=== PATIENT | male | born 1960 | race Caucasian/White ===

== ENCOUNTER → 2022-04-10 10:11 | Outpatient (CLI) | payer OTHER, SELFPAY ==
[2022-04-10 11:12] LABS: Hematocrit 44.8 % (41-53); Hemoglobin 14.6 g/dL (13.5-17.5); Mean Corpuscular HGB Conc 32.5 % (30-36); Mean Corpuscular Hemoglobin 27.4 PG (26-34); Mean Corpuscular Volume 84.2 fL (80-100); Platelet Count 292 X10^3/uL (150-400); Red Blood Cell Count 5.32 X10^6/uL (4.5-5.9); White Blood Cell Count 5.8 X10^3/uL (4.5-11.0)
[2022-04-10 11:24] LABS: Hemoglobin A1C% w Est Avg Glu 7.4 % (4.0-6.0)
[2022-04-10 11:46] LABS: Alanine Aminotransferase 38 IU/L (<50); Albumin 4.7 g/dL (3.5-5.0); Albumin Globulin Ratio 1.5 (1.0-2.8); Alkaline Phosphatase 62 U/L (38-126); Aspartate Aminotransferase 32 IU/L (17-59); BUN Creatinine Ratio 19.3 (6-22); Bilirubin Total 1.4 mg/dL (0.2-1.3); Blood Urea Nitrogen 16 mg/dL (9-20); Calcium 9.6 mg/dL (8.4-10.2); Carbon Dioxide 24 mmol/L (22-32); Chloride 102 mmol/L (98-107); Cholesterol 261 mg/dL (140-199); Estimated Glomerular Filt Rate > 60 mL/min (>60); Globulin 3.1 g/dL (1.7-4.1); Glucose 129 mg/dL (80-110); HDL Cholesterol 61 mg/dL (40-60); HEMOLYSIS < 15 (0-50); LDL Cholesterol Calculated 175 mg/dL (<100); Potassium 4.4 mmol/L (3.4-5.1); Sodium 139 mmol/L (137-145); Total Protein 7.8 g/dL (6.3-8.2); Triglycerides 126 mg/dL (35-150)
[2022-04-10 12:05] LABS: Creatinine Urine Random 47.2 mg/dL
[2022-04-10 12:12] LABS: Microalbumin Urine Random 0.9 mg/dL (0-1.6)
[2022-04-10 12:13] LABS: TSH w/ Reflex to FT4 2.54 uIU/mL (0.47-4.68)
[2022-04-10 12:14] LABS: Prostate Specific Antigen 0.557 ng/mL (0.10-4.00)
== END ==
PROVIDERS: PCP Internal Medicine; Referring Provider Internal Medicine; Visit Provider Internal Medicine
DX: E11.69 Type 2 diabetes mellitus with other specified complication (principal); E78.2 Mixed hyperlipidemia; E78.5 Hyperlipidemia, unspecified; I10 Essential (primary) hypertension; N13.8 Other obstructive and reflux uropathy; N40.1 Benign prostatic hyperplasia with lower urinary tract symptoms
CPT/HCPCS: 36415; 80053; 80061; 82043; 82570; 83036; 84153; 84443; 85027

== ENCOUNTER → 2022-10-06 09:06 | Outpatient (CLI) | payer OTHER, SELFPAY ==
[2022-10-06 12:10] LABS: Aspartate Aminotransferase 35 IU/L (17-59); BUN Creatinine Ratio 19.5 (6-22); Blood Urea Nitrogen 16 mg/dL (9-20); Calcium 9.6 mg/dL (8.4-10.2); Carbon Dioxide 32 mmol/L (22-32); Chloride 99 mmol/L (98-107); Cholesterol 238 mg/dL (140-199); Estimated Glomerular Filt Rate > 60 mL/min (>60); Glucose 148 mg/dL (80-110); HDL Cholesterol 56 mg/dL (40-60); HEMOLYSIS < 15 (0-50); LDL Cholesterol Calculated 147 mg/dL (<100); Potassium 5.3 mmol/L (3.4-5.1); Sodium 137 mmol/L (137-145); Triglycerides 176 mg/dL (35-150)
[2022-10-07 07:10] LABS: x Labcorp Estim. Avg Glu (eAG) 163 mg/dL (.); x Labcorp Hemoglobin A1c 7.3 % (4.8-5.6)
== END ==
PROVIDERS: PCP Internal Medicine; Referring Provider Internal Medicine; Visit Provider Internal Medicine
DX: E11.69 Type 2 diabetes mellitus with other specified complication (principal); E78.5 Hyperlipidemia, unspecified; E78.2 Mixed hyperlipidemia; I10 Essential (primary) hypertension
CPT/HCPCS: 36415; 80048; 80061; 83036; 84450

== ENCOUNTER → 2022-12-31 09:06 | Outpatient (CLI) | payer OTHER, SELFPAY ==
--- NOTE | 2022-12-31 09:11 | DI.RAD.S_ITS ---
PROCEDURE: XR LUMBAR SPINE 6V W BENDING INDICATIONS: sciatica with flex and ext. TECHNIQUE: 7 views of the lumbar spine acquired, including flexion and extension views. COMPARISON: None. FINDINGS: Bones: 5 nonrib-bearing vertebrae are present. Grade 1 anterolisthesis of L5 on S1 with bilateral pars interarticularis defects. Moderate to severe disc height loss at L5-S1 with degenerative endplate changes and vacuum disc phenomena. Facet arthropathy, worse at L4-L5 and L5-S1. No vertebral body compression fractures. No suspicious bony lesions. Soft tissues: Overlying bowel gas pattern is normal. No suspicious soft tissue calcifications. Atherosclerotic vascular calcifications. Flexion/extension: There is limited range of motion, with preserved alignment. IMPRESSION: Multilevel degenerative changes of the lumbar spine, worse at L5-S1 with bilateral pars interarticularis defects and grade 1 anterolisthesis. Dictated by: Catrachito Park M.D. on 12/31/2022 at 13:38 Approved by: Catrachito Park M.D. on 12/31/2022 at 13:40
--- NOTE | 2022-12-31 09:11 | DI.RAD.S_ITS ---
PROCEDURE: XR CERVICAL SPINE 4V OR 5V INDICATIONS: neck pain with flexion and ext. TECHNIQUE: 6 views of the cervical spine were acquired. COMPARISON: None. FINDINGS: Bones: No fractures or dislocations to the C6 level. Straightening of the normal cervical lordosis with focal kyphosis centered at C3-C4. Mild grade 1 anterolisthesis of C3 on C4. Minimal retrolisthesis of C4 on C5 and C5 on C6. There are multilevel degenerative changes of the cervical spine with facet and uncovertebral arthropathy, disc height loss with degenerative endplate changes and spurring. No suspicious bony lesions. There is limited range of motion between flexion and extension, with preserved bony alignment. Soft tissues: Prevertebral soft tissues are normal in thickness. IMPRESSION: Multilevel degenerative changes of the cervical spine with limited range of motion. Dictated by: Catrachito Park M.D. on 12/31/2022 at 13:36 Approved by: Catrachito Park M.D. on 12/31/2022 at 13:38
[2022-12-31 11:41] LABS: Aspartate Aminotransferase 31 IU/L (17-59); BUN Creatinine Ratio 20.3 (6-22); Blood Urea Nitrogen 16 mg/dL (9-20); Calcium 9.8 mg/dL (8.4-10.2); Carbon Dioxide 27 mmol/L (22-32); Chloride 103 mmol/L (98-107); Cholesterol 261 mg/dL (140-199); Estimated Glomerular Filt Rate > 60 mL/min (>60); Glucose 203 mg/dL (80-110); HDL Cholesterol 50 mg/dL (40-60); HEMOLYSIS < 15 (0-50); LDL Cholesterol Calculated 178 mg/dL (<100); Potassium 4.3 mmol/L (3.4-5.1); Sodium 138 mmol/L (137-145); Triglycerides 164 mg/dL (35-150)
[2022-12-31 12:09] LABS: Hemoglobin A1C% w Est Avg Glu 7.6 % (4.0-6.0)
== END ==
LOC: LAB 09:08 → RAD 09:09
PROVIDERS: PCP Internal Medicine; Referring Provider Internal Medicine; Visit Provider Internal Medicine
DX: M47.22 Other spondylosis with radiculopathy, cervical region (principal); M47.817 Spondylosis without myelopathy or radiculopathy, lumbosacral region; M47.816 Spondylosis without myelopathy or radiculopathy, lumbar region; M43.17 Spondylolisthesis, lumbosacral region; M54.50 Low back pain, unspecified; E11.69 Type 2 diabetes mellitus with other specified complication; E78.2 Mixed hyperlipidemia; E78.5 Hyperlipidemia, unspecified; G89.29 Other chronic pain
CPT/HCPCS: 36415; 72050; 72114; 80048; 80061; 83036; 84450

== ENCOUNTER → 2023-04-07 08:58 | Outpatient (CLI) | payer OTHER, SELFPAY ==
[2023-04-07 09:52] LABS: BUN Creatinine Ratio 23.3 (6-22); Blood Urea Nitrogen 17 mg/dL (9-20); Calcium 9.6 mg/dL (8.4-10.2); Carbon Dioxide 26 mmol/L (22-32); Chloride 104 mmol/L (98-107); Estimated Glomerular Filt Rate > 60 mL/min (>60); Glucose 173 mg/dL (80-110); HEMOLYSIS < 15 (0-50); Magnesium 2.2 mg/dL (1.6-2.3); Sodium 137 mmol/L (137-145)
[2023-04-07 09:54] LABS: Creatinine Urine Random 71.8 mg/dL
[2023-04-07 09:59] LABS: Microalbumi Creatinin Ratio Ur 47.3 ug/mg CR (<30); Microalbumin Urine Random 3.4 mg/dL (0-1.6)
[2023-04-07 20:02] LABS: Hemoglobin A1C% w Est Avg Glu 7.7 % (4.0-6.0)
== END ==
PROVIDERS: PCP Internal Medicine; Referring Provider Internal Medicine; Visit Provider Internal Medicine
DX: E78.2 Mixed hyperlipidemia (principal); I10 Essential (primary) hypertension; E11.69 Type 2 diabetes mellitus with other specified complication; E78.5 Hyperlipidemia, unspecified
CPT/HCPCS: 36415; 80048; 82043; 82570; 83036; 83735

== ENCOUNTER → 2023-07-07 16:53 | Outpatient (CLI) | payer OTHER, SELFPAY ==
[2023-07-07 17:29] LABS: Aspartate Aminotransferase 35 IU/L (17-59); BUN Creatinine Ratio 25.4 (6-22); Blood Urea Nitrogen 18 mg/dL (9-20); Calcium 9.6 mg/dL (8.4-10.2); Carbon Dioxide 28 mmol/L (22-32); Chloride 105 mmol/L (98-107); Cholesterol 262 mg/dL (140-199); Estimated Glomerular Filt Rate > 60 mL/min (>60); Glucose 125 mg/dL (80-110); HDL Cholesterol 52 mg/dL (40-60); HEMOLYSIS < 15 (0-50); LDL Cholesterol Calculated 154 mg/dL (<100); Sodium 138 mmol/L (137-145); Triglycerides 280 mg/dL (35-150)
[2023-07-07 17:41] LABS: Creatinine Urine Random 55.7 mg/dL
[2023-07-07 17:45] LABS: Microalbumi Creatinin Ratio Ur 35.9 ug/mg CR (<30)
[2023-07-07 18:00] LABS: Prostate Specific Antigen Scrn 0.504 ng/mL (0.1-4.0)
== END ==
PROVIDERS: PCP Internal Medicine; Referring Provider Internal Medicine; Visit Provider Internal Medicine
DX: E11.69 Type 2 diabetes mellitus with other specified complication (principal); E78.5 Hyperlipidemia, unspecified; E78.2 Mixed hyperlipidemia; N13.8 Other obstructive and reflux uropathy; Z12.5 Encounter for screening for malignant neoplasm of prostate; I10 Essential (primary) hypertension; N40.1 Benign prostatic hyperplasia with lower urinary tract symptoms
CPT/HCPCS: 36415; 80048; 80061; 82043; 82570; 84450; G0103

== ENCOUNTER → 2023-10-08 14:43 | Outpatient (CLI) | payer OTHER, SELFPAY ==
[2023-10-08 20:46] LABS: Hemoglobin A1C% w Est Avg Glu 7.4 % (4.0-6.0)
== END ==
PROVIDERS: PCP Internal Medicine; Referring Provider Internal Medicine; Visit Provider Internal Medicine
DX: E11.69 Type 2 diabetes mellitus with other specified complication (principal); E78.5 Hyperlipidemia, unspecified
CPT/HCPCS: 36415; 83036

== ENCOUNTER → 2024-05-03 15:58 | Outpatient (CLI) | payer OTHER, SELFPAY ==
[2024-05-03 16:42] LABS: Hemoglobin A1C% w Est Avg Glu 7.7 % (4.0-6.0)
[2024-05-03 16:54] LABS: Aspartate Aminotransferase 38 IU/L (17-59); BUN Creatinine Ratio 16.1 (6-22); Blood Urea Nitrogen 14 mg/dL (9-20); Calcium 9.6 mg/dL (8.4-10.2); Carbon Dioxide 28 mmol/L (22-32); Chloride 103 mmol/L (98-107); Cholesterol 208 mg/dL (140-199); Estimated Glomerular Filt Rate > 60 mL/min (>60); Glucose 120 mg/dL (80-110); HDL Cholesterol 51 mg/dL (40-60); HEMOLYSIS < 15 (0-50); LDL Cholesterol Calculated 128 mg/dL (<100); Potassium 4.1 mmol/L (3.4-5.1); Sodium 139 mmol/L (137-145); Triglycerides 144 mg/dL (35-150)
[2024-05-03 17:06] LABS: Creatinine Urine Random 47.42 mg/dL
[2024-05-03 17:11] LABS: Microalbumin Urine Random 2.3 mg/dL (0-1.6)
[2024-05-03 17:26] LABS: Prostate Specific Antigen 0.568 ng/mL (0.10-4.00)
== END ==
PROVIDERS: PCP Internal Medicine; Referring Provider Internal Medicine; Visit Provider Internal Medicine
DX: N40.1 Benign prostatic hyperplasia with lower urinary tract symptoms (principal); N13.8 Other obstructive and reflux uropathy; E11.69 Type 2 diabetes mellitus with other specified complication; E78.5 Hyperlipidemia, unspecified; E78.2 Mixed hyperlipidemia
CPT/HCPCS: 36415; 80048; 80061; 82043; 82570; 83036; 84153; 84450

== ENCOUNTER → 2024-08-17 14:14 | Outpatient (CLI) | payer OTHER, SELFPAY ==
--- NOTE | 2024-08-17 14:16 | DI.RAD.S_ITS ---
PROCEDURE: XR CHEST 2V INDICATIONS: cough TECHNIQUE: 2 views of the chest were acquired. COMPARISON: None. FINDINGS: Surgical changes and devices: None. Lungs and pleura: Lungs are clear. No pleural effusions or pneumothorax. Mediastinum: Mediastinal contours are normal. Heart size is normal. Bones and chest wall: No suspicious bony abnormalities. Soft tissues appear unremarkable. IMPRESSION: No acute cardiopulmonary abnormality is seen. Dictated by: Jose G Lopez M.D. on 08/17/2024 at 23:49 Approved by: Jose G Lopez M.D. on 08/17/2024 at 23:50
[2024-08-17 14:51] LABS: Add Manual Diff / Slide Review NO; Basophils Absolute Auto 100 /uL (0-100); Basophils Percent Auto 0.9 % (0-2); Eosinophils Absolute Auto 100 /uL (0-450); Eosinophils Percent Auto 1.4 % (2-4); Hematocrit 39.7 % (41-53); Hemoglobin 12.9 g/dL (13.5-17.5); Lymphocytes Absolute Auto 1400 /uL (1100-4500); Lymphocytes Percent Auto 15.3 % (25-40); Mean Corpuscular HGB Conc 32.6 % (30-36); Mean Corpuscular Hemoglobin 27.6 PG (26-34); Mean Corpuscular Volume 84.6 fL (80-100); Monocytes Absolute Auto 1100 /uL (0-900); Monocytes Percent Auto 11.9 % (3-14); Neutrophils Absolute Auto 6200 /uL (1500-7000); Neutrophils Percent Auto 70.5 % (50-75); Platelet Count 380 X10^3/uL (150-400); Red Blood Cell Count 4.69 X10^6/uL (4.5-5.9); Red Cell Distribution Width 13.8 % (11.6-14.8); White Blood Cell Count 8.9 X10^3/uL (4.5-11.0)
[2024-08-17 14:54] LABS: Hemoglobin A1C% w Est Avg Glu 7.3 % (4.0-6.0)
[2024-08-17 15:41] LABS: Alanine Aminotransferase 22 IU/L (<50); Albumin Globulin Ratio 1.3 (1.0-2.8); Alkaline Phosphatase 74 U/L (38-126); Aspartate Aminotransferase 22 IU/L (17-59); BUN Creatinine Ratio 20.7 (6-22); Bilirubin Total 0.5 mg/dL (0.2-1.3); Blood Urea Nitrogen 12 mg/dL (9-20); Carbon Dioxide 28 mmol/L (22-32); Chloride 101 mmol/L (98-107); Estimated Glomerular Filt Rate > 60 mL/min (>60); Glucose 127 mg/dL (70-99); HEMOLYSIS < 15 (0-50); Lipase 110 U/L (23-300); Potassium 3.4 mmol/L (3.4-5.1); Sodium 141 mmol/L (137-145)
[2024-08-17 18:33] LABS: Influenza A - CEPHEID Flu A NEGATIVE (NEGATIVE); Influenza B - CEPHEID Flu B NEGATIVE (NEGATIVE); Respiratory Syncytial Virus Negative (Negative)
[2024-08-17 18:39] LABS: COVID-19 CEPHEID 4-PLEX PCR Negative (Negative)
== END ==
PROVIDERS: PCP Internal Medicine; Referring Provider Internal Medicine; Visit Provider Internal Medicine
DX: R50.9 Fever, unspecified (principal); R51.9 Headache, unspecified; R05.9 Cough, unspecified; R10.9 Unspecified abdominal pain; E11.69 Type 2 diabetes mellitus with other specified complication; E78.5 Hyperlipidemia, unspecified
CPT/HCPCS: 0241U; 36415; 71046; 80053; 83036; 83690; 85025

== ENCOUNTER → 2024-10-18 11:01 | Outpatient (CLI) | payer OTHER, SELFPAY ==
--- NOTE | 2024-10-18 11:02 | DIAB.MNT ---
Initial Diabetes Medical Nutrition Therapy Assessment Name: Christofer Joyce (Rodri) Date: 10/18/24 Time: 11a-1135a Dx: Type II Diabetes Provider: Adi Bobby Learning Style: Doing, listening Rodri presents for initial Dm visit virtually using Portal. Appointment cut short due to internet connectivity issues on his side. Endorses taking Dm meds x 4-5 years. Paternal grandmother and paternal aunt with diabetes. States he wants to know why his BG are always higher in the morning than during the day. Wants to know more about diet. Endorses stressful job lately. Potentially reason why he is having ETOH servings more frequently. States he use to ride his horses for stress management, but with his spinal issues he no longer can. No longer has horses. Thinks walking use to help with walking. use to walk with . Diet Recall: wake 615a coffee black 9-10a: HB eggs OR bowl of oatmeal x 2pkts flavored (cinnamon maple/apple cinnamon) snacks: grapes 11-12: sandwich (meat/jarrell/cheese) or leftovers, 1c grapes, +/- banana, +/- plums, 3oz sun chips, cucumbers, carrots, +/- double stuffed oreos 2p snacks: nothing or leftover from lunch 6p: 1.5-2c Tuna helper OR baked spaghetti OR pork chops --- usually veggies corn, green beans Hs: cookie or nuts water 40oz x2 premier protein shake sometimes run and diet coke 4-5 days per week, trying to cut back --- might be stress related with work Anthropometrics: Ht: 5'10 Wt: 198# Weight history: reported UBW 215-230s. Started Ozempic and down to 192#. D/c of Ozempic due to fatigue and headaches. 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 Has 5 acres [place], [place], [employer]. Self-Monitoring Blood Glucose: checks 1-2x per day: FBG and pre or 2+ hours after meals. This morning 163. Last night 156. FBG usually 150-160s. Pre dinner 130-140s. Has questions about why BG rises over night. Diabetes Medications: 25mg Jardiance Pertinent Labs: hgA1c: 7.3% 08/2024 Past Medical History: (Last Reviewed 08/17/24 @ 13:03 by Johan Joshi MD) Allergic rhinitis Asthma, mild intermittent BPH w urinary obs/LUTS Cervical radiculopathy due to degenerative joint disease of spine Chicken pox (~1969) Chronic low back pain DM type 2 with diabetic dyslipidemia Erectile dysfunction Essential hypertension Fractures (~2020) GERD without esophagitis Hearing loss History of colonic polyps Mixed hyperlipidemia Mumps (~1970) Peyronie disease Sleep apnea (~2005) Thoracic aneurysm without mention of rupture Tinea unguium Urine test positive for microalbuminuria Nutrition Rx: Carbohydrates: Meal:45g Snack:15-30g Nutrition Diagnosis: - Excessive CHO intake r/t nutrition knowledge deficit aeb diet recall - Physical inactivity r/t stage of change contemplation aeb pt report Intervention: This participant was very receptive. Provided appropriate educational handouts. Discussed the following topics: Completed intake assessment. Pathophysiology of T2DM and troubleshooting hyperglycemia Self-monitoring, how often, and when to check. Suggested checking at different times to evaluate meals Pairing macronutrients and spreading out carbohydrates for better blood glucose management Recommended servings for carbohydrates at meals and snacks Brainstormed appropriate meal/snack ideas plan based on food preferences Role of physical activity and stress management Created SMART goals for patient self-care and success. Goals: Chat with about starting walks Reduce carbs at lunch Have a 3p snack Follow-up: [facility] follow-up in 3-4 weeks Marion Melendez RDN, [facility] Certified Diabetes Care and Nurse Emergency P: [phone] Thank you for this referral
== END ==
LOC: DIET 11:01
PROVIDERS: PCP Internal Medicine; Referring Provider Internal Medicine
DX: E11.9 Type 2 diabetes mellitus without complications (principal); Z71.3 Dietary counseling and surveillance; Z79.84 Long term (current) use of oral hypoglycemic drugs
CPT/HCPCS: 97802